=== PATIENT | female | born 1980 | race Caucasian/White ===

== ENCOUNTER 2024-02-11 04:53 | Day surgery (SDC) | payer OTHER ==
[2024-02-08 11:09] VITALS: BMI 30.5
[2024-02-11 11:45] VITALS: TEMP 97.8
[2024-02-11 12:05] VITALS: RESP 17
[2024-02-11 16:36] VITALS: BP 116/58; PULSE 60
== END 2024-02-11 12:25 | disposition home or self-care (01) ==
LOC: JASU-ENDO 04:53
PROVIDERS: ATTEND Internal Medicine Gastroenterology
PROC: 0DB78ZX Excision of Stomach, Pylorus, Via Natural or Artificial Opening Endoscopic, Diagnostic (ICD-10-PCS; 2024-02-11)
PROC: 0DB68ZX Excision of Stomach, Via Natural or Artificial Opening Endoscopic, Diagnostic (ICD-10-PCS; 2024-02-11)
PROC: 0DB38ZX Excision of Lower Esophagus, Via Natural or Artificial Opening Endoscopic, Diagnostic (ICD-10-PCS; principal; 2024-02-11 11:00)
DX: K21.00 Gastro-esophageal reflux disease with esophagitis, without bleeding (principal); K29.50 Unspecified chronic gastritis without bleeding
CPT/HCPCS: 82962; 88305-TC; 88312-TC; 88342-TC

== ENCOUNTER 2024-03-03 05:07 | Day surgery (SDC) | payer OTHER ==
[2024-02-22 12:34] VITALS: BMI 30.2
[2024-03-03 10:07] VITALS: TEMP 97.7
[2024-03-03 10:32] VITALS: RESP 16
[2024-03-03 10:37] VITALS: BP 106/58; PULSE 61
== END 2024-03-03 10:43 | disposition home or self-care (01) ==
LOC: JASU-ENDO 05:07
PROVIDERS: ATTEND Internal Medicine Gastroenterology
PROC: 0DBK8ZX Excision of Ascending Colon, Via Natural or Artificial Opening Endoscopic, Diagnostic (ICD-10-PCS; principal; 2024-03-03 09:15)
DX: Z12.11 Encounter for screening for malignant neoplasm of colon (principal); K64.8 Other hemorrhoids; K57.30 Diverticulosis of large intestine without perforation or abscess without bleeding